=== PATIENT | female | born 1955 | race Caucasian/White ===

== ENCOUNTER → 2016-09-11 14:24 | Emergency (ER) | payer OTHER ==
[~2016-09-11 14:24] MED LIST: Flumazenil* 0.1 MG/ML 5 ML MDV ONE; HYDROcodone/ACETAMIN 5-325 MG* 1 TAB PO ONE; Midazolam* 1 MG/ML 5 ML VIAL (5 MG) IV ONE; Midazolam* 1 MG/ML 5 ML VIAL (5 MG) ONE; NS 0.9% 1000 ML* 1,000 ML IV SCH; Naloxone* 0.4 MG/ML 1 ML VIAL ONE; Ondansetron INJ* 2 MG/ML VIAL IV ONE; Ondansetron INJ* 2 MG/ML VIAL ONE; fentaNYL* 50 MCG/ML 2 ML VIAL (100 MCG VIAL) IV SLOW PU ONE; fentaNYL* 50 MCG/ML 2 ML VIAL (100 MCG VIAL) ONE
--- NOTE | 2016-09-11 17:25 | RAD ---
INDICATION: Pain and deformity of the left ankle after a fall COMPARISON: None. TECHNIQUE: 2 views of the left ankle were obtained. FINDINGS: On the lateral view radiograph the distal tibia is dislocated anteriorly relative to the dome of the talus. There is an obliquely oriented fracture involving the distal fibula. On the AP view the tibia appears displaced medial and there is a fracture at the distal most aspect of the tibia. The remaining visualized bones appear to be intact. IMPRESSION: GUTIERREZ FRACTURE. THERE IS COMMINUTED FRACTURE OF THE DISTAL FIBULA, FRACTURE OF THE DISTAL MOST PORTION OF THE TIBIAL MALLEOLUS WITH DISLOCATION OF THE TIBIA ANTERIORLY RELATIVE TO THE TALAR DOME.
--- NOTE | 2016-09-11 17:27 | RAD ---
INDICATION: Status post reduction of left Pott's fracture COMPARISON: Same day radiograph of the left ankle acquired at 1513 hours TECHNIQUE: 3 views of the left ankle were obtained at 1557 hours. FINDINGS: There has been interval reduction of the dislocated tibia relative to the talar dome. There is a comminuted oblique fracture in the distal left fibula as well as a minimally displaced fracture of the left tibial malleolus. On the lateral view image there is a fracture through the posterior malleolus of the tibia as well. The remaining visualized bones appear to be intact. IMPRESSION: INTERVAL REDUCTION OF WHAT APPEARS TO BE A LEFT ANKLE TRIMALLEOLAR FRACTURE.
--- NOTE | 2016-09-11 18:08 | ED ---
Ted Roth Billy, scribed for Hemanth Valdez MD on 09/11/16 at 1445 . Lower Extremity - HPI Summary HPI Summary: Patient is a 61 year-old female coming to [facility] for evaluation of left ankle pain after a simple mechanical fall this morning. Patient denies any dizziness or shortness of breath during the onset of her symptoms. The pain is much worse with any movement. There is obvious deformity but no skin breaks. - History of Current Complaint Chief Complaint: EDExtremityLower Stated Complaint: FALL Time Seen by Provider: 09/11/16 14:37 Hx Obtained From: Patient Mechanism Of Injury: Fall From Height Of: - stairs Onset of Pain: Immediate Severity Initially: Moderate Severity Currently: Moderate Pain Intensity: 8 Pain Scale Used: 0-10 Numeric Timing: Constant Location: Is Discrete @ - left ankle Associated Signs And Symptoms: Positive: Other - deformity Aggravating Factor(s): Standing, Ambulation, Movement Alleviating Factor(s): Rest - Allergies/Home Medications Allergies/Adverse Reactions: Allergies Allergy/AdvReac Type Severity Reaction Status Date / Time Penicillins Allergy Severe Hives Verified 04/06/12 15:42 Shellfish-derived Products Allergy Unknown Verified 10/07/13 13:56 Reaction Details PMH/Surg Hx/FS Hx/Imm Hx Endocrine/Hematology History: Denies: Hx Diabetes Cardiovascular History: Reports: Hx Hypertension - TAKES MEDICATION Denies: Hx Pacemaker/ICD Respiratory History: Reports: Hx Asthma Musculoskeletal History: Reports: Hx Scoliosis Denies: Hx Rheumatoid Arthritis, Hx Osteoporosis Sensory History: Denies: Hx Hearing Aid Neurological History: Denies: Hx Headaches, Other Neuro Impairments/Disorders Psychiatric History: Denies: Hx Panic Disorder - Cancer History Hx Chemotherapy: No Hx Radiation Therapy: No - Surgical History Surgery Procedure, Year, and Place: CATARACTS 1999 & 2007, SCOLIOSIS CORRECTION WITH LUNDY MODESTA 1967 Infectious Disease History: No Infectious Disease History: Denies: Traveled Outside the [place] in Last 30 Days - Family History Family History: No family history of breast cancer. - Social History Lives: Alone Alcohol Use: Rare Substance Use Type: Reports: None Hx Tobacco Use: No Smoking Status (MU): Never Smoked Tobacco Have You Smoked in the Last Year: No Review of Systems Negative: Fever Positive: Arthralgia All Other Systems Reviewed And Are Negative: Yes Physical Exam Triage Information Reviewed: Yes Vital Signs On Initial Exam: Initial Vitals Temp Pulse Resp BP Pulse Ox 98.8 F 79 20 153/97 100 09/11/16 14:28 09/11/16 14:28 09/11/16 14:28 09/11/16 14:28 09/11/16 14:28 Vital Signs Reviewed: Yes Appearance: Positive: Well-Appearing, No Pain Distress Skin: Positive: Warm, Skin Color Reflects Adequate Perfusion, Dry Head/Face: Positive: Normal Head/Face Inspection Eyes: Positive: EOMI, ANILA Neck: Positive: Supple, Nontender Respiratory/Lung Sounds: Positive: Clear to Auscultation, Breath Sounds Present Cardiovascular: Positive: RRR Abdomen Description: Positive: Nontender, Soft Musculoskeletal: Positive: Pain @ - There is tenderness to palpation and obvious deformity to the left ankle. There are no skin breaks visualized. Distal pulses intact. Neurological: Positive: Normal, Sensory/Motor Intact, Alert, Oriented to Person Place, Time Psychiatric: Positive: Affect/Mood Appropriate - [place] Coma Scale Coma Scale Total: 15 Procedures - Procedure Summary Procedure Summary: MODERATE SEDATION PERFORMED WITH FENTANYL AND VERSED. SEE MODERATE SEDATION PAPERWORK. POST REDUCTION NV EXAM INTACT WITH GOOD TOE MOVEMENT, CAP REFILL < 2 SECONDS, POSITIVE DP PULSE, NORMAL SENSATION. - Splinting Location: LEFT ANKLE Hand-Made Type: orthoglass Splint: AND POSTERIOR Pre-Proc Neuro Vasc Exam: normal Post-Proc Neuro Vasc Exam: normal - Joint Reduction Joint Reduction Site: ankle (L) - Closed fracture dislocation reduction. Conscious Sedation: Yes - Moderate sedation. Pre-Procedure NV Exam: Yes Post Joint Reduction Film: joint reduced Diagnostics - Vital Signs Vital Signs Temp Pulse Resp BP Pulse Ox 09/11/16 14:38 80 100 09/11/16 14:37 147/96 09/11/16 14:28 98.8 F 79 20 153/97 100 - Laboratory Lab Statement: Any lab studies that have been ordered have been reviewed, and results considered in the medical decision making process. - Radiology Ankle XR Radiology Interpretation Completed By: Radiologist - GUTIERREZ FRACTURE. THERE IS COMMINUTED FRACTURE OF THE DISTAL FIBULA, FRACTURE OF THE DISTAL MOST PORTION OF THE TIBIAL MALLEOLUS WITH DISLOCATION OF THE TIBIA ANTERIORLY RELATIVE TO THE TALAR DOME. Ankle XR (post-reduction) Radiology Interpretation Completed By: Radiologist - INTERVAL REDUCTION OF WHAT APPEARS TO BE A LEFT ANKLE TRIMALLEOLAR FRACTURE. Re-Evaluation - Re-Evaluation First Eval Re-Evaluation Time: 16:30 Comment: Left ankle reduction with moderate sedation. See procedure note for more details. Lower Extremity Course/Dx - Course Assessment/Plan: DISCUSSED WITH ORTHOPEDICS, DR LARSON. MODERATE SEDATION WITH CLOSED REDUCTION OF LEFT ANKLE FRACTURE PERFORMED. DISCHARGE HOME STABLE. - Diagnoses Provider Diagnoses: Fracture dislocation of left ankle - Critical Care Time Critical Care Time: 30-74 min - MODERATE SEDATION Discharge - Discharge Plan Condition: Stable Disposition: HOME Prescriptions: HYDROcodone/ACETAMIN 5-325 MG* [[place] 5-325 TAB*] 1 tab PO Q4H PRN #20 tab MDD 6 PRN Reason: Pain Patient Education Materials: Ankle Fracture (ED), Ankle Dislocation (ED), Crutch Instructions (ED) Referrals: [facility] [Outside] Ida Richard MD [Primary Care Provider] - Rigo Larson MD [Medical Doctor] - Additional Instructions: FOLLOW UP WITH ORTHOPEDICS, CALL THEM TOMORROW IN THE MORNING. NO WEIGHT BEARING ON THE LEFT LEG. RETURN TO THE EMERGENCY DEPARTMENT FOR ANY WORSENING OF YOUR CONDITION; PAIN, LOSS OF CIRCULATION IN THE LEFT FOOT OR QUESTIONS OR CONCERNS. The documentation as recorded by the Ted schafer Billy accurately reflects the service I personally performed and the decisions made by me, Hemanth Valdez MD.
[2016-09-11 18:39] VITALS: BP 121/78
== END | disposition home or self-care (01) ==
LOC: ED 14:24
DX: S82.892A Other fracture of left lower leg, initial encounter for closed fracture (principal); I10 Essential (primary) hypertension; W19.XXXA Unspecified fall, initial encounter; Y92.9 Unspecified place or not applicable; Z88.0 Allergy status to penicillin
CPT/HCPCS: 27818; 96360; 96374; 96375; 99282; J2250; J2310; J2405; J3010

== ENCOUNTER 2016-09-13 10:17 | Observation (INO) | payer OTHER ==
--- NOTE | 2016-09-12 20:52 | HP ---
HISTORY AND PHYSICAL: DATE OF ADMISSION/SURGERY: 09/13/16 ATTENDING PHYSICIAN: Dr. Sorto (DICTATED BY JARRELL HANDLEY) PROCEDURE: ORIF of left ankle. CHIEF COMPLAINT: Left ankle pain. HISTORY OF PRESENT ILLNESS: Ms. Mallory is a 61-year-old female who fell down the stairs in her home yesterday afternoon. She went to [facility] , had x- rays taken, and was told she had a fractured ankle. She was placed into a splint and asked to follow up with Dr. Sorto. PAST MEDICAL HISTORY: Hypertension, asthma, GERD, and high cholesterol. PAST SURGICAL HISTORY: Scoliosis, rodding surgery, cataract removal. CURRENT MEDICATIONS: 1. Losartan. 2. Simvastatin. 3. Hydrochlorothiazide. 4. Symbicort. 5. Aspirin. 6. Omeprazole. 7. Ventolin inhaler. ALLERGIES: PENICILLIN, SHELLFISH, and SULFA. FAMILY HISTORY: Cancer. SOCIAL HISTORY: She is a 61-year-old female. She lives alone. She does not smoke or use drugs. Uses alcohol rarely. REVIEW OF SYSTEMS: A complete 14-point review of systems was reviewed with the patient, it was all negative or noncontributory. PHYSICAL EXAMINATION GENERAL: She is well developed, well nourished, in no acute distress. VITAL SIGNS: She stands 5 feet 3 inches tall, weighs 125 pounds. Her blood pressure is 124/80, her heart rate is 68. HEENT: Normocephalic, atraumatic. NECK: Supple. No palpable lymph nodes. PULMONARY: Lungs are clear to auscultation bilaterally. CARDIO: Regular rate and rhythm. Strong S1 and S2. ABDOMEN: Soft, nontender, nondistended. MUSCULOSKELETAL: Left lower extremity, she is able to wiggle the toes. The left ankle and the lower leg are in a splint, which is clean and dry. She has good capillary refill. 2+ dorsalis pedis pulses. She has intact sensation over all the toes. Dorsal and plantar aspect of the left foot, she is able to bend her knee. She is able to straight leg raise on the left. NEUROLOGICAL: She is alert and oriented x3. Cranial nerves II through XII are intact. ASSESSMENT AND PLAN: Ms. Mallory is a 61-year-old female who fell yesterday in her home, suffering a trimalleolar ankle fracture. She is scheduled for an ORIF of the left ankle for tomorrow with Dr. Sorto. Dr. Sorto has recommended she take aspirin 325 once a day for 3 weeks for DVT prophylaxis and we have provided oxycodone 5 mg to take every 4 to 6 hours for pain. She will see Dr. Sorto back 1 week after the surgery. JARRELL HANDLEY [id number]/[facility] #: [id number] [facility] CENTERSebastien
[~2016-09-13 10:17] MED LIST changes: +Buffered Lidocaine 1% SYR 3ML* 3 ML/SYR SYRINGE INTRADERM ONE; +Dexamethasone IV* 4 MG/ML 1 ML (4 MG) IV SLOW PU ONE; +Famotidine IV* 10 MG/ML 2 ML (20 mg) IV ONE; -Flumazenil* 0.1 MG/ML 5 ML MDV ONE; -HYDROcodone/ACETAMIN 5-325 MG* 1 TAB PO ONE; -Midazolam* 1 MG/ML 5 ML VIAL (5 MG) IV ONE; -Midazolam* 1 MG/ML 5 ML VIAL (5 MG) ONE; -NS 0.9% 1000 ML* 1,000 ML IV SCH; -Naloxone* 0.4 MG/ML 1 ML VIAL ONE; -Ondansetron INJ* 2 MG/ML VIAL IV ONE; -Ondansetron INJ* 2 MG/ML VIAL ONE; -fentaNYL* 50 MCG/ML 2 ML VIAL (100 MCG VIAL) IV SLOW PU ONE; -fentaNYL* 50 MCG/ML 2 ML VIAL (100 MCG VIAL) ONE
[2016-09-13] MEDS ORDERED: Dexamethasone IV* 4 MG/ML 1 ML (4 MG) ONE (10:25)
[2016-09-13] MEDS ORDERED: Famotidine IV* 10 MG/ML 2 ML (20 mg) ONE (10:25)
[2016-09-13] MEDS ORDERED: ceFAZolin 2 GM PREMIX(*) 2 GM/50 ML BAG IVPB ONE (13:24)
[2016-09-13] MEDS ORDERED: DiMENhydriNATE IV* 50 MG/ML VIAL IV PUSH PRN (13:28)
[2016-09-13] MEDS ORDERED: Levalbuterol 0.63MG/3ML NEB INH ONE (13:28)
[2016-09-13] MEDS ORDERED: oxyCODONE/Acetamin 5/325 MG* TAB PO PRN ×3 (13:28→15:59)
[2016-09-13] MEDS ORDERED: Scopolamine 1.5 mg* PATCH TRANSDERM PRN (13:28)
[2016-09-13] MEDS ORDERED: Ondansetron INJ* 2 MG/ML VIAL IV PRN (13:28)
[2016-09-13] MEDS ORDERED: HYDROmorphone* 1 MG/ML 1 ML SYR IV PRN (13:28)
[2016-09-13] MEDS ORDERED: fentaNYL* 50 MCG/ML 2 ML VIAL (100 MCG VIAL) IV PRN (13:28)
[2016-09-13] MEDS ORDERED: Levalbuterol 1.25MG/0.5ML NEB ONE (13:30)
[2016-09-13] MEDS ORDERED: fentaNYL* 50 MCG/ML 5 ML VIAL (250 MCG VIAL) ONE (13:36)
[2016-09-13] MEDS ORDERED: Midazolam* 1 MG/ML 5 ML VIAL (5 MG) ONE (13:36)
[2016-09-13] MEDS ORDERED: Ondansetron INJ* 2 MG/ML VIAL ONE (13:37)
[2016-09-13] MEDS ORDERED: Atracurium* 10 MG/ML 10 ML VIAL ONE (13:37)
[2016-09-13] MEDS ORDERED: Ketorolac INJ* 30 MG/ML 1 ML VIAL ONE (13:37)
[2016-09-13] MEDS ORDERED: Lidocaine 2% PF * 5 ML VIAL ONE (13:37)
[2016-09-13] MEDS ORDERED: Propofol* 10 MG/ML 20 ML BTL IV PUSH ONE (13:37)
[2016-09-13] MEDS ORDERED: fentaNYL* 50 MCG/ML 2 ML VIAL (100 MCG VIAL) ONE ×2 (14:11→14:20)
[2016-09-13] MEDS ORDERED: Bupivacaine 0.25% SDV* 30 ML ONE (14:19)
[2016-09-13] MEDS ORDERED: Metoprolol Tartrate IV* 1 MG/ML 5 ML VIAL ONE (14:26)
[2016-09-13] MEDS ORDERED: Enalaprilat IV* 1.25 MG/ML 2 ML VIAL (2.5 MG) ONE (14:47)
[2016-09-13] MEDS ORDERED: Desflurane* 240 ML INH ONE (14:50)
[2016-09-13] MEDS ORDERED: diPHENhydraMINE IV* 50 MG/ML 1 ml VIAL (BENADRYL) IV PRN (15:59)
[2016-09-13] MEDS ORDERED: Ondansetron TAB* 4 MG PO PRN (15:59)
[2016-09-13] MEDS ORDERED: Morphine INJ* 2 MG/ML 1 ML SYRINGE IV PRN (15:59)
[2016-09-13] MEDS ORDERED: Acetaminophen TAB* 325 MG PO PRN (15:59)
--- NOTE | 2016-09-13 16:03 | RAD ---
INDICATION: ORIF trimalleolar fracture LEFT ankle. COMPARISON: September 12, 2016 CT. TECHNIQUE: 21.9 seconds fluoroscopy. FINDINGS: Spot images document 2 fixation screws bridging the medial malleolus fracture with anatomic alignment as well as partial visualization of a lateral cortical plate bridging the [place] type C fibular fracture and a solitary screw traversing the syndesmosis. Grossly congruent ankle mortise. Lateral cutaneous amanda. IMPRESSION: Procedural fluoroscopy. CPT II Codes: 6045F
[2016-09-13] MEDS ORDERED: Olopatadine 0.2% (NF) 1 DROP BTL BOTH EYES PRN (16:04)
[2016-09-13] MEDS ORDERED: Albuterol HFA INHALER* 8 gm MDI INH PRN (16:04)
[2016-09-13] MEDS ORDERED: Atorvastatin* 20 MG TAB PO SCH (18:00)
[2016-09-13] MEDS: oxyCODONE TAB* 5 MG TAB PO PRN (22:06)
[2016-09-13] MEDS: ceFAZolin 1 GM in Dextrose (*) 1 GM/50 ML BAG IVPB SCH (22:09)
[2016-09-13] MEDS: Mometasone/Formoter 100/5 MDI INH SCH (22:10)
[2016-09-14] MEDS: ceFAZolin 1 GM in Dextrose (*) 1 GM/50 ML BAG IVPB SCH ×2 (06:15→13:38)
[2016-09-14] MEDS ORDERED: Omeprazole CAP* 20 MG PO SCH (07:30)
[2016-09-14] MEDS: oxyCODONE TAB* 5 MG TAB PO PRN ×2 (07:44→13:38)
[2016-09-14] MEDS: Mometasone/Formoter 100/5 MDI INH SCH (07:53)
--- NOTE | 2016-09-14 08:30 | OP ---
CC: Dr. Richard. OPERATIVE REPORT: SURGICAL CARE: Left ankle, 09/13/16. DATE OF OPERATION: 09/13/16 DATE OF : 51 SURGEON: Jh Sorto MD PRODUCTION OFFICER: JARRELL Barnett ANESTHESIOLOGIST: Dr. Jo Ann Lacey. ANESTHESIA: Endotracheal tube, general. COMPLICATIONS: There were no complications. DRAINS: There were no drains. PRE-OP DIAGNOSIS: Left ankle trimalleolar fracture dislocation. POST-OP DIAGNOSIS: Left ankle trimalleolar fracture dislocation. OPERATIVE PROCEDURE: Open reduction and internal fixation of and left ankle, medial malleolus and l ateral malleolus. INDICATIONS: Left ankle trimalleolar fracture dislocation. This was a displaced unstable fracture. A CT scan was done preoperatively showing that and posterior malleolus was in satisfactory alignme nt and small. CONDITION: Stable to and recovery room. DESCRIPTION OF PROCEDURE: The patient was brought to and operating room and placed on the operating table in supine position. Following the administration of the general anesthetic within an endotra cheal tube. The patient was placed in the right lateral position with hip positioner and pelvis pos teriorly and anteriorly. The right lower extremity was flexed a little bit at the hip and the left l ower extremity was extended little bit at the hip and placed on a foam pad, elevated 6 to 8 inches. The left thigh was draped with a tourniquet. The left leg, ankle, foot, and between the toes given a preliminary chlorhexidine scrub and after that was completed, then surgical ChloraPrep scrub was done in the focus. Prepped and draped in the usual manner for surgical care of the ankle, sealing o ff the forefoot and the toes with an Ioban drape. We did a universal protocol timeout confirming Dmitriy Mallory and a plan for ORIF of the ankle. We all agreed and we proceeded. The distal fibula, later al malleolus was approached with a longitudinal skin incision curving very slightly anteriorly at th e distal end, and this was done after the leg, ankle, and foot were exsanguinated with a Mook tour niquet. The tourniquet on the thigh was elevated to 275. The skin and subcu were divided down to t he fibula. There was hematoma entirely in the subcutaneous tissues. The long oblique fracture of t he fibula was exposed first and then the distal fragment. The periosteum was elevated going posteri giovani and anteriorly so that the plate could be placed on the posterior fibula without any difficulty . The fracture did not have comminution at the main part of the fragment, but there was comminution medially, distal to the level of the plafond. The fracture was opened up by externally rotating th e foot and the lateral ankle joint, lateral dome of talus was visualized. There was no debris here. We irrigated several times with saline and inspected the joint again and it looked clean. So, the fibula was reduced anatomically and fixed with one anterior to posterior interfragmentary compressi on screw and then a 7-hole one-third tubular plate was placed posteriorly and proximally. Three of the 4 screws were inserted and then 2 of the 3 screws were inserted distally and everything was chec ked on AP and lateral fluoroscopy showing anatomic alignment of the ankle. At this stage, I checked the tib-fib syndesmosis and it seemed to be loose and it seemed reduced just perfectly with a littl e internal rotation in the foot. So, syndesmosis screw was inserted 3.5 cortical 50 mm in length. We checked again AP and lateral fluoroscopy and some of the screws were shortened including the dist al most screw to the lateral malleolus. The lateral wound was irrigated deep. Periosteum closed wi th interrupted 4-0 Polysorb. Superficial subcu closed with 4-0 Polysorb and skin was closed with sta ples. The patient was then sled into the supine position and the medial malleolus was approached wi th diagonal incisions, dividing the skin and subcu down to the distal medial tibia, medial malleolus . The medial malleolus had comminution that we had seen on the CT scan. The area was irrigated. T he medial malleolus was reduced anatomically. The 2.5 mm drill was inserted through the tip of the medial malleolus and to the proximal tibia. The position was very satisfactory. We checked it on f antionette and then a 33.5 cortical screw was inserted here using a lag technique in the distal tip of me dial malleolus. This appeared to be anatomic and then there was another fracture line going straigh t up from the medial malleolus up and this was fixed with a transverse screw and washer. At this po int, the mortise view of the ankle on fluoroscopy was anatomic. The medial malleolus appeared to be anatomic and the distal fibula lateral malleolus appeared to be anatomic. Everything was accepted. The wound was irrigated. On the medial side, the superficial subcu closed with 4-0 Polysorbs and t he skin closed with interrupted 4- 0 Surgipro in simple and vertical mattress fashion. There was a small blister in the anterior ankle that was 1 to 2 cm in size that remained clean and it was preppe d with chlorhexidine and a regular prep as well. After closure, everything was washed with soap and water. The surgeries were covered with Betadine-soaked Release and we put this on the blister as w ell. The posterior tibial pulse was 2+, and the dressing was Betadine-soaked Release, sterile gauze , sterile Webril. Further Webril and a short-leg cast was then applied with the ankle in a neutral p osition keeping the foot slightly inverted and internally rotated. After the cast was hard with the ankle in neutral then the anterior part of the cast was removed and the remaining cast was dressed with a 6-inch Ben bandage and the patient was returned to recovery room in stable and satisfactory c ondition having tolerate the procedure very well. [id number]/[facility] #: [id number]
[2016-09-14] MEDS ORDERED: Hydrochlorothiazide TAB* 25 MG PO SCH (09:00)
[2016-09-14] MEDS ORDERED: Losartan TAB* 25 MG PO SCH (09:00)
[2016-09-14 11:48] VITALS: BP 94/55
[2016-09-16] MEDS ORDERED: Scopolomine PATCH Remove* 1 NOTE MISC PATCH OFF ONE (13:29)
== END 2016-09-14 16:15 | disposition home or self-care (01) ==
LOC: OR 10:17 → INTOOBSV 17:54 → SSU 17:54
PROVIDERS: ADMIT Orthopaedic Surgery; ATTEND Orthopaedic Surgery
PROC: 0QSK04Z Reposition Left Fibula with Internal Fixation Device, Open Approach (ICD-10-PCS; 2016-09-13)
PROC: 0QSH04Z Reposition Left Tibia with Internal Fixation Device, Open Approach (ICD-10-PCS; principal; 2016-09-13 11:30)
DX: S82.852A Displaced trimalleolar fracture of left lower leg, initial encounter for closed fracture (principal); W10.9XXA Fall (on) (from) unspecified stairs and steps, initial encounter; Y92.009 Unspecified place in unspecified non-institutional (private) residence as the place of occurrence of the external cause; I10 Essential (primary) hypertension; K21.9 Gastro-esophageal reflux disease without esophagitis; J45.909 Unspecified asthma, uncomplicated; E78.00 Pure hypercholesterolemia, unspecified; Z79.82 Long term (current) use of aspirin; Z79.899 Other long term (current) drug therapy
CPT/HCPCS: A9270-GY; C1713; C1776; G0378; J0690; J1100; J1885; J2250; J2405; J2704; J3010; Q9967

== ENCOUNTER 2019-02-23 09:01 | Emergency (ER) | payer OTHER ==
[2019-02-23 09:07] VITALS: BP 145/90
--- NOTE | 2019-02-23 09:27 | UC ---
Throat Pain/Nasal Shane HPI - HPI Summary HPI Summary: started with ST 5 days ago, over next 3 day experienced nasal contion and fatigue, starting last josefina she started having pain R maxillary area, blowing nose a lot. This am R side face is more painful, worse if bends forward, R ear painful. has taken no meds thus far - History of Current Complaint Chief Complaint: UCGeneralIllness Stated Complaint: SINUS COMPLAINT Time Seen by Provider: 02/23/19 09:02 Hx Obtained From: Patient Onset/Duration: Gradual Onset Severity: Moderate Pain Intensity: 8 Cough: None Associated Signs & Symptoms: Positive: Sinus Discomfort, Nasal Discharge. Negative: Fever Related History: Seasonal Allergies - Allergies/Home Medications Allergies/Adverse Reactions: Allergies Allergy/AdvReac Type Severity Reaction Status Date / Time MS Penicillins [Penicillins] Allergy Severe Hives Verified 10/18/18 09:47 MS Shellfish-derived Products Allergy Unknown Verified 10/18/18 09:47 [Shellfish-derived Products] Reaction Details MS Sulfa Antibiotics Allergy Unknown Verified 10/18/18 09:47 [Sulfa Antibiotics] Reaction Details ENVIRONMENTAL Allergy Congestion Uncoded 10/18/18 09:47 DUST/MOLD/POLLEN PMH/Surg Hx/FS Hx/Imm Hx Previously Healthy: Yes Endocrine History: Dyslipidemia Cardiovascular History: Hypertension Respiratory History: Asthma - Surgical History Surgical History: Yes Surgery Procedure, Year, and Place: CATARACTS , 1999 and 2007. SCOLIOSIS CORRECTION WITH LUNDY MODESTA 1968. D&C 1990? - Family History Known Family History: Positive: Hypertension Family History: No family history of breast cancer. - Social History Occupation: Employed Full-time Lives: Alone Alcohol Use: Rare Alcohol Amount: once a month, maybe a 1/2 glass wine Substance Use Type: None Smoking Status (MU): Never Smoked Tobacco Have You Smoked in the Last Year: No Review of Systems All Other Systems Reviewed And Are Negative: Yes Constitutional: Positive: Fatigue Skin: Positive: Negative. Negative: Rash Eyes: Positive: Negative ENT: Positive: Ear Ache, Sinus Congestion, Sinus Pain/Tenderness - sore throat has resolved Respiratory: Positive: Negative Cardiovascular: Positive: Negative Neurological: Positive: Headache - R frontal area Is Patient Immunocompromised?: No Physical Exam Triage Information Reviewed: Yes Appearance: Well-Appearing, No Pain Distress, Well-Nourished Vital Signs: Initial Vital Signs Temp 98.4 F 02/23/19 09:05 Pulse 88 02/23/19 09:05 Resp 17 02/23/19 09:05 BP 145/90 02/23/19 09:05 Pulse Ox 100 02/23/19 09:05 Vital Signs Reviewed: Yes Eyes: Positive: Conjunctiva Clear ENT: Positive: Pharynx normal, Nasal congestion, TMs normal, Sinus tenderness Dental Exam: Normal Neck exam: Normal Neck: Positive: Supple, Nontender, No Lymphadenopathy Respiratory Exam: Normal Respiratory: Positive: Lungs clear Cardiovascular Exam: Normal Cardiovascular: Positive: RRR Neurological Exam: Normal Psychological Exam: Normal Skin Exam: Normal Skin: Negative: Rashes Throat Pain/Nasal Course/Dx - Differential Dx/Diagnosis Differential Diagnosis/HQI/PQRI: Otitis Media, Sinusitis, Tonsillitis, URI Provider Diagnosis: Sinusitis Discharge ED - Sign-Out/Discharge Documenting (check all that apply): Patient Departure All imaging exams completed and their final reports reviewed: No Studies - Discharge Plan Condition: Good Disposition: HOME Prescriptions: Ciprofloxacin TAB* [Cipro 500 MG TAB*] 500 mg PO BID #20 tab Patient Education Materials: Sinusitis (ED) Referrals: Ida Richard MD [Primary Care Provider] - (recheck B/P and sinusitis) Additional Instructions: drink plenty of fluids and rest start cipro antibiotic and take as directed use over the counter Mucinex as directed on label also try cool mist humidifier throughout day and at bedtime - Billing Disposition and Condition Condition: GOOD Disposition: Home - Attestation Statements Provider Attestation: Per institutional requirements, I have reviewed the chart, however, I was not consulted specifically or made aware of this patient by the midlevel provider. I did not personally evaluate, interact with , or disposition this patient.
== END 2019-02-23 09:35 | disposition home or self-care (01) ==
LOC: UCEAST 09:01
DX: J32.9 Chronic sinusitis, unspecified (principal); I10 Essential (primary) hypertension; J45.909 Unspecified asthma, uncomplicated; Z88.0 Allergy status to penicillin; Z88.2 Allergy status to sulfonamides; Z91.013 Allergy to seafood; Z91.09 Other allergy status, other than to drugs and biological substances; Z82.49 Family history of ischemic heart disease and other diseases of the circulatory system
CPT/HCPCS: 99212; G0463